=== PATIENT | male | born 1950 | race Caucasian/White ===

== ENCOUNTER → 2023-06-11 12:26 | Outpatient (REF) | payer MEDICARE, OTHER, SELFPAY | LOC: HWRAD 12:26 | PROVIDERS: ATTENDING PHYSICIAN Chiropractor; FAMILY PHYSICIAN Family Medicine | DX: M53.2X7 Spinal instabilities, lumbosacral region (principal); R10.2 Pelvic and perineal pain | CPT/HCPCS: 72110; 72170 ==

== ENCOUNTER → 2024-03-25 06:52 | Outpatient (REF) | payer MEDICARE, OTHER, SELFPAY | LOC: MRI 3T 06:52 | PROVIDERS: ATTENDING PHYSICIAN Physical Medicine & Rehabilitation; FAMILY PHYSICIAN Family Medicine | DX: M54.16 Radiculopathy, lumbar region (principal); M47.816 Spondylosis without myelopathy or radiculopathy, lumbar region; Z96.652 Presence of left artificial knee joint; Z96.661 Presence of right artificial ankle joint; Z98.890 Other specified postprocedural states | CPT/HCPCS: 72148 ==

== ENCOUNTER 2024-10-20 17:55 | Emergency (ER) | payer MEDICARE, OTHER, SELFPAY ==
[2024-10-20 18:05] VITALS: BP 176/101
[2024-10-20 18:12] LABS: Glucose - Point of Care 124 mg/dl (70-99)
[2024-10-20 18:42] LABS: Hematocrit 42.9 % (39.0-52.0); Hemoglobin 14.9 g/dL (13.0-18.0); Mean Corp Hgb Conc. 34.7 g/dL (33.0-37.0); Mean Corpuscular Volume 90.9 fL (80.0-94.0); Nucleated Red Blood Cells % 0 % (-); Platelet Count 254 10^3/uL (130-400); Red Cell Dist. Width 12.0 % (11.5-14.5)
--- NOTE | 2024-10-20 18:56 | ED.GENMED ---
History of Present Illness
General
Chief Complaint: Change in Mental Status
Source: patient
Exam Limitations: none
Time Seen by Provider: 10/20/24 18:04
Nursing documentation reviewed up to this point in time: agreed with
History of Present Illness
History of Present Illness:
Patient presents to ED via ambulance, secondary to mental status change. Per paramedics, patient was found at a local gas station, trying to use gas pump as a phone. school child care attendant called 911. Upon arrival, patient is alert, awake, and oriented,
with intermittent disruption in speech. Patient otherwise has no other complaints. Denies recent illness. Denies headache. Denies loss of sensation or weakness.
Past History
Past History
ED Past Medical History: Hypercholesterolemia, Other (recurrent cellulitis, DVT) and Other (Osteoarthritis, lumbar disc disease)
ED Past Surgical History: Orthopedic (Arthroscopy left knee, left shoulder rotator cuff repair, right ankle fracture repair)
Social History
Tobacco: Non-smoker
Alcohol: Occasional
Personal:
Living: with family
Employment: Employed
Family History
Family History: Negative Diabetes
Review of Systems
Review of Systems
Allergies reviewed?: Yes
All Other Systems: ROS reviewed and negative except as documented in HPI and ROS
Constitutional: Reports no symptoms
Cardiac: Reports no symptoms
ABD/GI: Reports no symptoms
Musculoskeletal: Reports no symptoms
Skin: Reports no symptoms
Neurological: Reports no symptoms
Phy Exam
Physical Exam
Physical Exam:
Physical Exam
General: no apparent distress, not acutely ill. afebrile
Head: nc/at. eomi
Neck: supple. no meningeal signs.
Heart: s1/s2 regular rate and rhythm
Lungs: no acute respiratory distress. clear bilaterally
Abdomen: normal bowel sounds. not tender.
Neuro: alert and oriented x 3. no focal sensory/motor deficit.
Skin: no rash
Psychiatric: well kept. interactive and cooperative
Extremities: no edema. no calf tenderness.
Course
Orders/Labs/Results
Orders:
Orders
10/20/24 18:04
CT Head W/o Iv Contrast Stat
Comment:
Reason For Exam: change in mental status
10/20/24 18:30
Basic Metabolic Panel Urgent
CBC/With Diff [Complete Blood Count/With Diff] Urgent
Abnormal Lab Results
10/20/24 10/20/24
18:10 18:30
MCH 31.6 H pg
(27.0-31.0)
MPV 10.6 H fL
(7.4-10.4)
Absolute Monos (auto) 0.8 H 10^3/uL
(0.1-0.6)
Glucose 123 H mg/dl
(70-99)
POC Glucose 124 H mg/dl
(70-99)
10/20/24 18:30
10/20/24 18:30
Vital Signs
Initial and Last Documented VS:
Initial Vital Signs
Temp Pulse Resp BP Pulse Ox
98.4 F 87 18 176/101 97
10/20/24 18:05 10/20/24 18:05 10/20/24 18:05 10/20/24 18:05 10/20/24 18:05
Last Documented Vital Signs
Temp Pulse Resp BP Pulse Ox
98.4 F 87 18 146/89 97
10/20/24 18:05 10/20/24 18:05 10/20/24 18:05 10/20/24 19:00 10/20/24 19:00
MDM/Problems Addressed
MDM/Problems Addressed:
Patient evaluated immediately upon arrival, with concern for potential CVA. No focal neurological deficit noted, although there is intermittent episodes of slow speech/expressive aphasia. As such, CT head ordered without contrast.
CT head: No acute findings.
Shortly afterwards, patient's spouse arrived. Spouse tells me that noted speech disruption, has been chronic, and ongoing for the past 2 years. Patient has been evaluated by , neurologist, as an outpatient, along with early development of
Alzheimer's disease. In addition, Dr. Friend had cleared patient to continue to drive independently. 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
Patient otherwise is afebrile, hemodynamically stable, and without any focal neurological deficit, at time of discharge, to the care of his spouse.
*Pulse Oximetry
SaO2: 97
Oxygen Mode of Delivery: Room air
Patient hypoxic: no
*Critical Care Note
Total Time (30-74mins, 75-104mins- exclusive of procedures): Not Applicable
ED Attending Note
-
Portions of this chart may have been created with voice recognition software.� Occasional wrong word or��sound alike� substitutions may have occurred due to the inherent limitations of voice recognition software.
Discharge Plan
Departure
Patient Disposition: Home (Routine Discharge)
Date of Disposition: 10/20/24
Time of Disposition: 18:57
Patient with high blood pressure during this ER visit?: Yes
Discharge Problem:
Altered mental status
Instructions: Altered Mental Status (DC)
Prescriptions:
No Action
cholecalciferol (vitamin D3) 2,000 UNITS tablet
2,000 units PO DAILY
magnesium citrate 100 MG tablet
100 mg PO DAILY
pantoprazole 40 MG tablet,delayed release (DR/EC)
40 mg PO DAILY
cyanocobalamin (vitamin B-12) 1,000 MCG tablet
2 tab PO DAILY
[id number] [Mens Multivitamin High Potency] 1 EACH tablet
1 ea PO DAILY
turmeric root extract 500 MG capsule
2 tab PO DAILY
cephalexin 500 MG capsule
500 mg PO DAILY
Patient Comments:
pt on daily post knee infection
cannabidiol [Epidiolex] 1 UNIT solution
1 unit PO PRN PRN (Reason: pain)
oxycodone 5 MG tablet
5 mg PO Q6HPRN PRN (Reason: moderate-severe pain) Qty: 30 0RF
Rx Instructions:
1 tab moderate pain or 2 if pain severe
Dx total joint replacement
ongoing therapy
ondansetron HCl 4 MG tablet
4 mg PO Q6HPRN PRN (Reason: Nausea) Qty: 20 0RF
Rx Instructions:
Take 1/2 hour prior to Oxycodone for recurrent nausea.
mupirocin 1 APPLIC ointment
1 applic intranasal BID Qty: 1 0RF
Patient Comments:
pt states he started as ordered on 12/23 did own dose this am at 0630
potassium [Potassium-99] 99 MG tablet
1 tab PO DAILY
acetaminophen 500 MG tablet
1,000 mg PO Q6H Qty: 60 0RF
Rx Instructions:
Do not exceed >4000 mg daily.
docusate sodium 100 MG capsule
100 mg PO BID Qty: 30 0RF
sennosides [senna] 8.6 MG capsule
8.6 mg PO BID Qty: 30 0RF
aspirin 325 MG tablet,delayed release (DR/EC)
325 mg PO DAILY Qty: 28 0RF
Rx Instructions:
Take daily x4 weeks for blood clot prevention; then resume Aspirin 81 mg daily.
Vitamin K2
1 tab PO DAILY Qty: 0 0RF
Rx Instructions:
Do not resume until 1 week post-op.
Referrals:
Nate Friend MD [Active, Neurology]
Activity Restrictions/Additional Instructions:
As discussed, please follow-up with your primary care physician and/or neurologist for continual evaluation and treatment.
Interventions
Interventions:
*Risk Screen - Suicide Last Done: 10/20/24 18:05
*General Assessment Last Done: 10/20/24 18:05
*Neglect/Abuse Screening Last Done: 10/20/24 18:05
*ED- Fall Risk Assessment Last Done: 10/20/24 18:05
*ED COVID-19 Vaccine History Last Done: 10/20/24 18:05
*Nursing Disposition Last Done: 10/20/24 19:14
ED- Neurological Assessment Last Done: 10/20/24 18:05
Discharge Date and Time
Discharge Date/Time: 10/20/24 19:14
Print Language: POLISH
[2024-10-20 19:00] VITALS: BP 146/89
[2024-10-20 19:11] LABS: Blood Urea Nitrogen 13 mg/dl (9-20); Calcium 10.0 mg/dl (8.4-10.2); Carbon Dioxide 25 mmol/L (22-30); Chloride 106 mmol/L (98-107); Glucose 123 mg/dl (70-99); Potassium 3.9 mmol/L (3.5-5.1); Sodium 142 mmol/L (135-145); eGFR > 60.00
== END 2024-10-20 19:14 | disposition home or self-care (01) ==
LOC: EMR 17:55
PROVIDERS: EMERGENCY PHYSICIAN Emergency Medicine; FAMILY PHYSICIAN Family Medicine
DX: R41.82 Altered mental status, unspecified (principal); E78.00 Pure hypercholesterolemia, unspecified; Z86.718 Personal history of other venous thrombosis and embolism
CPT/HCPCS: 99284; 70450; 80048; 82962; 85025